=== PATIENT | female | born 1965 | race Caucasian/White ===

== ENCOUNTER → 2016-05-01 | Outpatient (CLI) | payer MEDICARE, OTHER ==
[~2016-05-01] MED LIST: ANTIVERT 25MG T25 MG PO; CARAFATE1 GM/10 ML PO; CELEXA40 MG PO; COLACE100 MG PO; DAILY VITAMIN1 EACH PO; FLEXERIL 10 MG10 MG PO; HAIR, SKIN & N1 EACH PO; IMITREX100 MG PO; INDERAL LA60 MG PO; NEXIUM40 MG PO; PERCOCET 10-321 EACH PO; RESTASIS1 EACH OU; SEROQUEL100 MG PO; VALIUM 2 MG TAB2 MG PO; WELLBUTRIN100 MG PO
== END ==
LOC: KOH-I 09:26
DX: E05.00 Thyrotoxicosis with diffuse goiter without thyrotoxic crisis or storm (principal); Z88.2 Allergy status to sulfonamides; Z88.1 Allergy status to other antibiotic agents; Z88.8 Allergy status to other drugs, medicaments and biological substances
CPT/HCPCS: 70482; Q9963

== ENCOUNTER → 2020-11-06 | Outpatient (CLI) | payer OTHER | LOC: KOH-I 08:35 | DX: R42 Dizziness and giddiness (principal) | CPT/HCPCS: 70450 ==